=== PATIENT | female | born 1995 | race Caucasian/White ===

== ENCOUNTER 2017-11-13 17:44 | Emergency (ER) | payer OTHER ==
[~2017-11-13] VITALS: Ht 165.1 cm; Wt 90.9 kg
[2017-11-13 20:11] VITALS: BP 113/71
== END 2017-11-13 20:15 | disposition home or self-care (01) ==
LOC: EMS 17:46
DX: O99.321 Drug use complicating pregnancy, first trimester (principal); G25.81 Restless legs syndrome; F12.10 Cannabis abuse, uncomplicated; Z3A.01 Less than 8 weeks gestation of pregnancy
CPT/HCPCS: 85379; 99283

== ENCOUNTER 2018-04-23 10:07 | Emergency (ER) | payer OTHER ==
[~2018-04-23] VITALS: Ht 165.1 cm; Wt 90.9 kg
[2018-04-23] MEDS ORDERED: FLUO-191 PO (10:11)
[2018-04-23] MEDS ORDERED: HYDROCODONE/ACETAMINOPHEN 5-325 MG TABLET PO ONE (12:15)
[2018-04-23] MEDS ORDERED: KETOROLAC TROMETHAMINE 30 MG/ML VIAL IM ONE (12:15)
[2018-04-23] MEDS ORDERED: LIDOCAINE 5% TRANSDERMAL PATCH TD ONE (12:15)
[2018-04-23 13:30] VITALS: BP 121/75
== END 2018-04-23 13:47 | disposition home or self-care (01) ==
LOC: EMS 10:08
DX: M54.5 Low back pain (principal); Z79.899 Other long term (current) drug therapy; W01.0XXA Fall on same level from slipping, tripping and stumbling without subsequent striking against object, initial encounter; Y93.E1 Activity, personal bathing and showering; Y92.091 Bathroom in other non-institutional residence as the place of occurrence of the external cause; Y99.8 Other external cause status
CPT/HCPCS: 72100; 96372; 99284; J1885